=== PATIENT | male | born 1990 | race Caucasian/White ===

== ENCOUNTER 2017-05-11 16:48 | Emergency (ER) | payer OTHER ==
[~2017-05-11] VITALS: Ht 190.5 cm; Wt 114.6 kg
[~2017-05-11 16:48] MED LIST: BUPR100T8 PO; HYDR1CAP85 PO
[2017-05-11 17:06] VITALS: TEMP 36.8; Ht 190.5 cm; Wt 114.6 kg
[2017-05-11] MEDS ORDERED: [UNRECOGNIZED DRUG - OTHER] PO (18:11)
[2017-05-11] MEDS ORDERED: TYLC/3 PO (18:11)
[2017-05-11] MEDS ORDERED: TIZA2CAP PO (18:11)
[2017-05-11] MEDS ORDERED: FENTANYL (18:13)
--- NOTE | 2017-05-11 20:29 | DIAGNOSTIC IMAGING REPORT ---
LUMBAR SPINE W/O CONTRAST CLINICAL HISTORY: 27 years-old Male with acute fracture with LLE weakness/pain. Acute low back pain status post bending over. No radicular symptoms. COMPARISON: Lumbar spine radiographs 05/10/2017 TECHNIQUE: Multiplanar, multi sequence MRI of the lumbar spine was performed without intravenous contrast. FINDINGS: Modic type II endplate degenerative changes are noted at L5-S1 with mild intervertebral disc space narrowing. Several small Schmorl's nodes with minimal endplate spurring noted. No acute fracture or marrow replacing process. Moderate soft tissue edema seen within the left psoas musculature centered at the L2-L3 level. Conus medullaris terminates at L1. Signal within the imaged cord appears normal. Imaged intrapelvic, intra-abdominal and paraspinal structures demonstrate no acute abnormal. Several of the images are mildly to moderately motion degraded. T12-L1: No central canal or neural foraminal stenosis. L1-L2: Small circumferential annular disc bulge. No central canal or foraminal narrowing. L2-L3: Small broad-based posterior disc bulge. There is a large extra left extraforaminal/left far lateral disc extrusion which measures 1.4 x 0.9 x 1.3 cm in AP, transverse and craniocaudal dimensions respectively as seen on image 10 of series 6 and image 14 of series 3 with mild surrounding edema and adjacent annular fissure. This abuts the exiting left L2 nerve root. The left foramen itself demonstrates no high-grade narrowing. No right foraminal or central canal stenosis is identified. L3-L4: Small broad-based posterior disc bulge flattens the ventral thecal sac. No central canal or foraminal narrowing. L4-L5: Small broad-based posterior disc bulge. No central canal or foraminal narrowing. L5-S1: Mild intervertebral disc space narrowing with Modic type II endplate degenerative changes. Broad-based posterior disc bulge with small annular fissure flattens the ventral thecal sac. No central canal narrowing. There is moderate left and mild right foraminal narrowing. Mild facet arthropathy also present. IMPRESSION: 1. At L2-L3 there is a focal annular fissure with large left extraforaminal disc extrusion with moderate surrounding edema abutting the exiting left L2 nerve root as above. No significant central canal or foraminal narrowing. 2. Moderate intramuscular edema of the left psoas is likely reactive from the aforementioned disc changes as above. 3. Additional discogenic degenerative changes as above with Modic type II endplate changes at L5-S1. Broad-based posterior disc bulge with small annular fissure is also seen at this level with resultant moderate left and mild right foraminal narrowing. The above report was generated using voice recognition software. It may contain grammatical, syntax or spelling errors. Electronically signed by: Edgar German M.D. 05/11/2017 8:28 PM Dictated Date/Time: 05/11/2017 8:18 PM
[2017-05-11] MEDS ORDERED: OXYCODONE/ACETAMINOPHEN 5-325 TAB PO STA (21:41)
[2017-05-11] MEDS ORDERED: CYCLOBENZAPRINE HCL 10 MG TAB PO STA (21:41)
--- NOTE | 2017-05-11 22:01 | EMERGENCY ROOM VISIT NOTE ---
History Report prepared by Rubens: Bang Barajas Under the Supervision of: Dr. Christen Mao D.O. First contact with patient: 17:09 Chief Complaint: BACK PAIN History of Present Illness The patient is a 27 year old male who presents to the Emergency Room with complaints of constant lower back pain beginning yesterday. He has a history of chronic back pain due to spondylosis. He states that he was bending over to pick something heavy up when he felt a sudden increase in back pain yesterday. The patient states that he felt nauseous and lightheaded following this pain. He was seen in the local ED and was found to have a small suspected L4-L5 fracture. The patient notes that he was working in the [facility] when his new pain began. His pain is worsened with lifting his legs, left worse than right. He denies any leg pain, fevers, chills, numbness, tingling, or bowel or bladder incontinence. The patient notes that he has not defecated in over 24 hours, but believes this is likely due to the pain medication he is taking. He states that his pain is worse on the left side, and describes it as "sharp", but states that his pain feels like an "ache" on the right. He notes that his chronic back pain is primarily right sided. Source of History: patient Onset: Yesterday Position: back (lower) Timing: constant Associated Symptoms: + nausea, No fevers, No chills, No numbness Note: The patient also complains of lightheadedness when his pain began. He denies any leg pain, tingling, or bowel or bladder incontinence. Review of Systems See HPI for pertinent positives & negatives. A total of 10 systems reviewed and were otherwise negative. Past Medical & Surgical Medical Problems: (1) Pneumonia Family History No pertinent family history stated. Social History Smoking Status: Never Smoker Alcohol Use: other Marital Status: single Housing Status: lives with family Occupation Status: employed Current/Historical Medications Scheduled Acetaminophen W/ Codeine (Acetaminophen/Codeine), 1 TAB PO UD Methylprednisolone (Medrol Dosepak), 1 PKT PO UD Tizanidine (Zanaflex), 2 MG PO UD [Arcoxia], 120 MG PO UD [Fentanyl], 25 MCG UD [Fentanyl], 50 MCG UD Scheduled PRN Cyclobenzaprine Hcl (Flexeril), 10 MG PO TID PRN for Muscle Spasms Oxycodone/Acetaminophen 5MG/325MG (Percocet 5MG/325MG), 1-2 TABS PO Q4H PRN for Pain Allergies Coded Allergies: Iodinated Contrast Media (Verified Allergy, Intermediate, HIVES, 05/11/17) Physical Exam Vital Signs Date Time Temp Pulse Resp B/P (MAP) Pulse Ox O2 Delivery O2 Flow Rate FiO2 05/11/17 22:19 59 18 133/59 99 05/11/17 20:10 61 18 144/85 97 Room Air 05/11/17 18:38 60 18 146/76 98 Room Air 05/11/17 17:06 36.8 67 18 138/94 98 Room Air Physical Exam GENERAL: alert, well appearing, well nourished, no distress, non-toxic EYE EXAM: normal conjunctiva, PERRL and EOM's grossly intact OROPHARYNX: no exudate, no erythema, lips, buccal mucosa, and tongue normal and mucous membranes are moist NECK: supple, no nuchal rigidity, no adenopathy, non-tender LUNGS: Clear to auscultation. Normal chest wall mechanics HEART: no murmurs, S1 normal and S2 normal ABDOMEN: abdomen soft, non-tender, normo-active bowel sounds, no masses, no rebound or guarding. BACK: Reproducible low back pain, left greater than right. No midline tenderness or step off. +2/4 patellar reflexes bilaterally. Normal pulses. Good cap refill. SKIN: no rashes and no bruising UPPER EXTREMITIES: upper extremities are grossly normal. LOWER EXTREMITIES: No pitting edema. NEURO EXAM: Normal sensorium, cranial nerves II-XII grossly intact, normal speech, no gross weakness of arms, no gross weakness of legs. Medical Decision & Procedures ER Provider Diagnostic Interpretation: Radiology results have been interpreted by the radiologist and reviewed by me. LUMBAR SPINE W/O CONTRAST FINDINGS: Modic type II endplate degenerative changes are noted at L5-S1 with mild intervertebral disc space narrowing. Several small Schmorl's nodes with minimal endplate spurring noted. No acute fracture or marrow replacing process. Moderate soft tissue edema seen within the left psoas musculature centered at the L2-L3 level. Conus medullaris terminates at L1. Signal within the imaged cord appears normal. Imaged intrapelvic, intra-abdominal and paraspinal structures demonstrate no acute abnormal. Several of the images are mildly to moderately motion degraded. T12-L1: No central canal or neural foraminal stenosis. L1-L2: Small circumferential annular disc bulge. No central canal or foraminal narrowing. L2-L3: Small broad-based posterior disc bulge. There is a large extra left extraforaminal/left far lateral disc extrusion which measures 1.4 x 0.9 x 1.3 cm in AP, transverse and craniocaudal dimensions respectively as seen on image 10 of series 6 and image 14 of series 3 with mild surrounding edema and adjacent annular fissure. This abuts the exiting left L2 nerve root. The left foramen itself demonstrates no high-grade narrowing. No right foraminal or central canal stenosis is identified. L3-L4: Small broad-based posterior disc bulge flattens the ventral thecal sac. No central canal or foraminal narrowing. L4-L5: Small broad-based posterior disc bulge. No central canal or foraminal narrowing. L5-S1: Mild intervertebral disc space narrowing with Modic type II endplate degenerative changes. Broad-based posterior disc bulge with small annular fissure flattens the ventral thecal sac. No central canal narrowing. There is moderate left and mild right foraminal narrowing. Mild facet arthropathy also present. IMPRESSION: 1. At L2-L3 there is a focal annular fissure with large left extraforaminal disc extrusion with moderate surrounding edema abutting the exiting left L2 nerve root as above. No significant central canal or foraminal narrowing. 2. Moderate intramuscular edema of the left psoas is likely reactive from the aforementioned disc changes as above. 3. Additional discogenic degenerative changes as above with Modic type II endplate changes at L5-S1. Broad-based posterior disc bulge with small annular fissure is also seen at this level with resultant moderate left and mild right foraminal narrowing. The above report was generated using voice recognition software. It may contain grammatical, syntax or spelling errors. Electronically signed by: Edgar German M.D. 05/11/2017 8:28 PM Medications Administered Medications (Trade) Dose Ordered Sig/Ayleen Route Start Time Stop Time Status Last Admin Dose Admin Cyclobenzaprine HCl (Flexeril Tab) 10 mg NOW STAT PO 05/11/17 21:41 05/11/17 21:43 DC 05/11/17 22:12 10 MG Oxycodone/ Acetaminophen (Percocet 5-325mg Tab) 1 tab NOW STAT PO 05/11/17 21:41 05/11/17 21:43 DC 05/11/17 22:13 1 TAB Prednisone (PredniSONE TAB) 50 mg NOW STAT PO 05/11/17 22:01 05/11/17 22:02 DC 05/11/17 22:13 50 MG ED Course 1714: The patient was evaluated in room C9. A complete history and physical exam was performed. 2140: Ordered Percocet 5-325 mg Tab PO, Flexeril Tab 10 mg PO. 2200: Ordered Prednisone Tab 50 mg PO. 2204: Upon reevaluation, the patient is feeling better. I discussed the findings and the treatment plan with the patient. He verbalizes agreement and understanding. He was discharged home. Medical Decision Differential diagnosis: Etiologies such as musculoskeletal, disc herniation, fracture, aortic disease, metastatic disease, cord compression, discitis, infection, renal colic, gastrointestinal, acute exacerbation of chronic back pain, sciatica, cauda equina, as well as others were entertained. Pt well appearing here despite complaints. No fracture, no evidence of cauda equina. Discussed all results with pt and with asst to Dr. Ramirez. They can f/ u closely in the office. Agree with plan for conservative treatment. Pt agreeable. Discussed with them sx to watch/return for, they verbalized understanding and were agreeable with plan. Medication Reconcilliation Current Medication List: was personally reviewed by me Blood Pressure Screening Patient's blood pressure: Elevated blood pressure Blood pressure disposition: Elevated BP felt to be situational Consults Time Called: 2110 Consulting Physician: Lashanda Dockery PA-C -Orthopedics Returned Call: [phone] I reviewed the patient's case with Lashanda Dockery PA-C. She recommends giving the patient steroids. She will follow up with the patient as an outpatient. Impression Primary Impression: Low back pain Additional Impression: Disc herniation Scribe Attestation The scribe's documentation has been prepared under my direction and personally reviewed by me in its entirety. I confirm that the note above accurately reflects all work, treatment, procedures, and medical decision making performed by me. Departure Information Dispostion Home / Self-Care Prescriptions Methylprednisolone (MEDROL DOSEPAK) 4 Mg Graham 1 PKT PO UD for 6 Days, #1 PKT Prov: Christen Mao, DO 05/11/17 Oxycodone/Acetaminophen 5MG/325MG (PERCOCET 5MG/325MG) Tab 1-2 TABS PO Q4H Y for Pain, #14 TAB Prov: Christen Mao, DO 05/11/17 Cyclobenzaprine Hcl (FLEXERIL) 10 Mg Tab 10 MG PO TID Y for Muscle Spasms, #21 TAB Prov: Christen Mao, DO 05/11/17 Referrals Brandon Thayer M.D. (PCP) Patient Instructions My [facility] Additional Instructions Please follow up with Dr. Ramirez in the office. Please take the medications as prescribed. Please do not drive if you're taking muscle relaxer or narcotic pain medication. Please drink plenty of water. These monitor for constipation as this is a frequent side effect of narcotic pain medications. Please do not lift anything heavier than a gallon of milk until you're otherwise seen and examined. Please avoid any bending, stooping, twisting, lifting, prolonged sitting as this could worsen your pain. Please follow-up with your employers employee health/Workmen's Compensation department. Please follow the protocols. If you develop worsening pain, fevers, become incontinent of urine or stool, notice numbness or tingling in the legs, or in the groin around your genitals, develop weakness in the leg, are unable to walk, or you have any other new concerns, please return the emergency room. You may use over the counter antiinflammatory agents such as ibuprofen/advil/alleve - do not take these on an empty stomach and drink plenty of water. Problem Qualifiers Primary Impression: Low back pain Chronicity: acute Back pain laterality: bilateral Sciatica presence: without sciatica Qualified Codes: M54.5 - Low back pain Additional Impression: Disc herniation Spinal region: lumbar Qualified Codes: M51.26 - Other intervertebral disc displacement, lumbar region
[2017-05-11] MEDS ORDERED: OXYC-57 PO (22:03)
[2017-05-11] MEDS ORDERED: METH4PAK PO (22:03)
[2017-05-11] MEDS ORDERED: CYCL10TA6 PO (22:03)
[2017-05-11 22:19] VITALS: BP 133/59; PULSE 59; O2SAT 99
== END 2017-05-11 22:21 | disposition home or self-care (01) ==
LOC: EDBD 16:48 → C.EDC 16:49
DX: M51.26 Other intervertebral disc displacement, lumbar region (principal); M47.9 Spondylosis, unspecified; X50.0XXA Overexertion from strenuous movement or load, initial encounter; Y99.0 Civilian activity done for income or pay; Z87.01 Personal history of pneumonia (recurrent)